=== PATIENT | female | born 1990 ===

== ENCOUNTER 2024-04-01 08:15 | Outpatient (CLI) | payer OTHER | END 2024-04-01 08:33 | disposition home or self-care (01) | LOC: PRENATAL 08:15 | PROVIDERS: ATTEND Obstetrics & Gynecology Maternal & Fetal Medicine | DX: O36.80X0 Pregnancy with inconclusive fetal viability, not applicable or unspecified (principal); Z36.82 Encounter for antenatal screening for nuchal translucency; Z3A.12 12 weeks gestation of pregnancy ==

== ENCOUNTER → 2024-05-20 09:34 | Outpatient (CLI) | payer OTHER | END | disposition home or self-care (01) | LOC: PRENATAL 09:34 | PROVIDERS: ATTEND Obstetrics & Gynecology Maternal & Fetal Medicine | DX: O44.00 Complete placenta previa NOS or without hemorrhage, unspecified trimester (principal); Z3A.19 19 weeks gestation of pregnancy ==

== ENCOUNTER → 2024-08-02 07:08 | Outpatient (CLI) | payer OTHER | END | disposition home or self-care (01) | LOC: PRENATAL 07:08 | PROVIDERS: ATTEND Obstetrics & Gynecology Maternal & Fetal Medicine | DX: Z76.1 Encounter for health supervision and care of foundling (principal) ==

== ENCOUNTER → 2024-08-19 09:51 | Outpatient (CLI) | payer OTHER | END | disposition home or self-care (01) | LOC: PRENATAL 09:51 | PROVIDERS: ATTEND Obstetrics & Gynecology Maternal & Fetal Medicine | DX: O26.849 Uterine size-date discrepancy, unspecified trimester (principal); O36.8199 Decreased fetal movements, unspecified trimester, other fetus; Z3A.32 32 weeks gestation of pregnancy ==

== ENCOUNTER 2024-09-23 12:04 | Inpatient (IN) | payer OTHER ==
[~2024-09-23] VITALS: Ht 152.4 cm; Wt 55.8 kg
[2024-09-23 12:21] LABS: BASO % 0.7 % (0.1-1.2); EOS # 0.06 (0.04-0.54); EOS % 0.6 % (0.7-7.0); LYMPH # 1.76 (1.18-3.74); LYMPH % 17.3 % (19.3-53.1); MEAN PLATELET VOLUME 11.90 fl (9.4-12.4); MONO # 0.50 (0.24-0.82); MONO % 4.9 % (4.7-12.5); NEUT # 7.74 (1.56-6.13); NEUT % 76.1 % (34.0-71.1); RED CELL DISTRIBUTION WIDTH 14.6 % (11.6-14.4)
[2024-09-23 12:31] LABS: URINE APPEARANCE Clear; URINE BILIRRUBIN Negative (NEGATIVE); URINE BLOOD Negative; URINE COLOR Yellow; URINE GLUCOSE Negative (NEGATIVE); URINE KETONE Negative (NEGATIVE); URINE LEUKOCYTE Moderate; URINE NITRATE Negative; URINE PROTEIN Negative (NEGATIVE); URINE UROBILINOGEN 0.2 E.U./dl
[2024-09-23 12:35] LABS: URINE BACTERIA 1581.3 uL (0.0-1933); URINE EPITHELIAL CELLS 79.5 uL (0.0-38.8); URINE RBC 5.7 uL (0.0-20.8); URINE WBC 23.0 uL (0.0-23.2)
[2024-09-23 12:36] LABS: URINE CAST 0.29 uL (0.0-1.40)
[2024-09-23 12:47] LABS: INR < 0.93
[2024-09-23 13:16] LABS: ALT/SGPT 22.0 U/L (12-78); AST/SGOT 21.0 U/L (15-37); BILIRUBIN TOTAL 0.4 mg/dL (0.3-1.2); BUN CREA RATIO 17.0 (7.0-25.0); CREATININE SERUM 0.6 mg/dL (0.55-1.02); GFR 115.13; GLOBULINA 3.4 G/DL (2.4-3.5); GLUCOSE FASTING 75.0 mg/dL (65-100); OSMOLALITY SERUM 275.0 MOSM/KG (275-295)
[2024-10-16 17:21] VITALS: BP 114/77
[2024-10-16] MEDS ORDERED: RINGERS SOLUTION,LACTATED 1,000 ML IV SCH (17:45)
[2024-10-16] MEDS ORDERED: PRENATA CHEWAB1 EACH PO (18:05)
[2024-10-16] MEDS ORDERED: IRON236 MG PO (18:05)
[2024-10-16] MEDS ORDERED: MISOPROSTOL 25 MCG TABLET ONE (19:43)
[2024-10-16] MEDS ORDERED: MISOPROSTOL 25 MCG TABLET VAG ONE (20:45)
[2024-10-16 23:27] VITALS: BP 113/81
[2024-10-17] VITALS (8 sets, daily range): BP systolic 95–121; BP diastolic 63–83; O2SAT 100
[2024-10-17] MEDS ORDERED: ONDANSETRON HCL 2 MG/ML VIAL ONE (08:01)
[2024-10-17] MEDS ORDERED: FAMOTIDINE/PF 20 MG/2 ML VIAL ONE (08:02)
[2024-10-17] MEDS ORDERED: ONDANSETRON HCL 2 MG/ML VIAL IV PRN (08:15)
[2024-10-17] MEDS ORDERED: FAMOTIDINE/PF 20 MG/2 ML VIAL IV PRN (08:15)
[2024-10-17] MEDS ORDERED: ERYTHROMYCIN BASE OPHT 1GM EACH TUBE OP ONE ×2 (08:56→12:30)
[2024-10-17] MEDS ORDERED: CHLORHEXIDINE GLUCONATE 120 ML BOTTLE TOP ONE ×3 (08:57→12:30)
[2024-10-17] MEDS ORDERED: OXYTOCIN 20 UNITS/1000ML RL PIGGYBAG IV ONE (08:57)
[2024-10-17] MEDS ORDERED: LIDOCAINE HCL 1% 10ML VIAL ONE (08:57)
[2024-10-17] MEDS ORDERED: OXYTOCIN 1,000 ML IV SCH (11:15)
[2024-10-17] MEDS ORDERED: ACETAMINOPHEN 500 MG GEL..CAP PO PRN (11:15)
[2024-10-17] MEDS ORDERED: LIDOCAINE HCL 1% 10ML VIAL IJ ONE (12:30)
[2024-10-17 14:21] LABS: BASO % 0.1 % (0.1-1.2); EOS # 0.00 (0.04-0.54); EOS % 0.0 % (0.7-7.0); LYMPH # 0.72 (1.18-3.74); LYMPH % 3.2 % (19.3-53.1); MEAN PLATELET VOLUME 12.50 fl (9.4-12.4); MONO # 0.88 (0.24-0.82); MONO % 3.9 % (4.7-12.5); NEUT # 20.60 (1.56-6.13); NEUT % 92.3 % (34.0-71.1); RED CELL DISTRIBUTION WIDTH 13.7 % (11.6-14.4)
[2024-10-18 00:09] VITALS: BP 126/79
[2024-10-18 08:24] VITALS: BP 115/75
[2024-10-18 16:00] VITALS: BP 117/76
[2024-10-18] MEDS ORDERED: DOCUSATE SODIUM 100MG CAP PO SCH (17:00)
[2024-10-19] VITALS: BP 119/77
[2024-10-19] MEDS ORDERED: HYDROCORTISONE 2.5% 30 GM TUBE RECTAL SCH (09:00)
[2024-10-19 09:22] VITALS: BP 107/67
== END 2024-10-19 15:37 | disposition home or self-care (01) | DRG 807 ==
LOC: OB/GYN 10-14 11:20 → LDR 10-16 17:07 → OB/GYN 10-17 10:57
PROVIDERS: General Practice; ADMIT Student in an Organized Health Care Education/Training Program; ATTEND Student in an Organized Health Care Education/Training Program
PROC: 3E0P7VZ Introduction of Hormone into Female Reproductive, Via Natural or Artificial Opening (ICD-10-PCS; 2024-10-16)
PROC: 4A1HXCZ Monitoring of Products of Conception, Cardiac Rate, External Approach (ICD-10-PCS; 2024-10-16)
PROC: 10E0XZZ Delivery of Products of Conception, External Approach (ICD-10-PCS; principal; 2024-10-17)
PROC: 0UQG7ZZ Repair Vagina, Via Natural or Artificial Opening (ICD-10-PCS; 2024-10-17)
PROC: 0UQMXZZ Repair Vulva, External Approach (ICD-10-PCS; 2024-10-17)
PROC: 3E033VJ Introduction of Other Hormone into Peripheral Vein, Percutaneous Approach (ICD-10-PCS; 2024-10-17)
DX: O71.4 Obstetric high vaginal laceration alone (principal); O71.82 Other specified trauma to perineum and vulva; Z37.0 Single live birth; Z3A.40 40 weeks gestation of pregnancy

== ENCOUNTER → 2024-10-14 08:23 | Outpatient (CLI) | payer OTHER ==
[~2024-10-14 08:23] MED LIST: IRON236 MG PO; PRENATA CHEWAB1 EACH PO
== END | disposition home or self-care (01) ==
LOC: PRENATAL 08:23
PROVIDERS: ATTEND Obstetrics & Gynecology Maternal & Fetal Medicine
DX: O26.849 Uterine size-date discrepancy, unspecified trimester (principal); O36.8199 Decreased fetal movements, unspecified trimester, other fetus; O40.1XX0 Polyhydramnios, first trimester, not applicable or unspecified; Z3A.38 38 weeks gestation of pregnancy